=== PATIENT | male | born 1945 | race Caucasian/White ===

== ENCOUNTER 2023-08-17 09:03 | Inpatient (IN) | payer MEDICARE, OTHER, SELFPAY ==
[2023-08-17] VITALS (9 sets, daily range): BP systolic 101–145; BP diastolic 65–88; BMI 27.4; BMI 26.9; BMI 26.8
[2023-08-17 06:49] LABS: % Basophils 0.4 % (0-2); % Eosinophils 2.6 % (0-6); % Immature Granulocytes 0.6 % (0-0.5); % Lymphocytes 18.7 % (20.5-51.1); % Monocytes 5.3 % (1.7-9.3); % Neutrophils 72.4 % (42.2-75.2); Absolute Eosinophils 0.2 10^3/uL (0-0.7); Absolute Lymphocytes 1.3 10^3/uL (1.2-3.4); Absolute Monocytes 0.4 10^3/uL (0.1-0.6); Hematocrit 28.6 % (39.0-52.0); Hemoglobin 9.9 g/dL (13.0-18.0); Mean Corp Hgb Conc. 34.6 g/dL (33.0-37.0); Mean Corpuscular Hgb 31.1 pg (27.0-31.0); Mean Corpuscular Volume 89.9 fL (80.0-94.0); Mean Platelet Volume 10.1 fL (7.4-10.4); Nucleated Red Blood Cells % 0 % (-); Platelet Count 200 10^3/uL (130-400); Red Blood Cell Count 3.18 10^6/uL (4.70-6.10); Red Cell Dist. Width 12.1 % (11.5-14.5); White Blood Cell Count 6.9 10^3/uL (4.8-10.8)
[2023-08-17 07:00] LABS: INR 1.05; PT 13.5 Sec (11.4-14.6)
[2023-08-17 07:01] LABS: APTT 28.7 Sec (23.4-35.0)
--- NOTE | 2023-08-17 07:08 | ED.GENMED ---
History of Present Illness
General
Chief Complaint: Rectal Bleeding
Source: patient
Exam Limitations: none
Time Seen by Provider: 08/17/23 06:40
Travel History
Have you had any contact with someone who has COVID-19?: No
Do you have any symptoms of coronavirus? Fever > 100 degrees, chills, cough, shortness of breath, sore throat, loss of taste or smell, muscle aches, or headache?: No
History of Present Illness
History of Present Illness:
This is an 78-year-old male with history of prostate cancer presents with rectal bleeding. Patient states that on Friday night he had 2 episodes that seem to stop and did well yesterday through the day but this morning in the middle the night he
got up to urinate and had at least 4 episodes of bright red blood per rectum. Patient does have history of diverticular disease. No fevers. No abdominal pain. He states he otherwise feels normal. He states 'I could go out shovel snow right'.
Past History
Past History
ED Past Medical History: Cancer (Prostate cancer) and Other (Irritable bowel syndrome, diverticulitis, diverticulosis)
ED Past Surgical History: Orthopedic
Phy Exam
Physical Exam
Physical Exam:
CONSTITUTIONAL Patient alert and oriented to person, place and time. Well-appearing. Vital signs reviewed.
HEAD atraumatic, normocephalic.
EYES eyelids normal to inspection, Extraocular muscles intact, Conjunctiva normal, Sclera normal.
NECK normal range of motion, Trachea midline, no jugular venous distention.
RESPIRATORY CHEST No respiratory distress noted, Chest expansion equal
ABDOMEN abdomen nontender, Bowel sounds normal. No distention.
Rectal exam bright red blood on exam
BACK normal inspection, no obvious deformities
UPPER EXTREMITY range of motion normal, Motor strength normal, no cyanosis, no edema.
LOWER EXTREMITY range of motion normal, Motor strength normal, no cyanosis, no edema.
NEURO Speech normal, No focal motor deficits, Live coma scale 15, Memory normal, Cranial Nerves intact to screening exam.
SKIN skin warm, dry, and normal in color.
PSYCHIATRIC patient oriented to person place and time, Normal affect.
Course
Orders/Labs/Results
Orders:
Orders
08/17/23 06:36
Cardiac Monitoring- Treatment ONCE
IV Insert/Care/Rem.- Treatment PRN
O2 Therapy [RESP] Urgent
Titrate/Wean O2 to maintain O2 sat greater than (%): 93
Special Instructions: MAINTAIN CONTINOUS O2 SATS > OR = 93%
Pulse Ox/spot Check [RESP] Urgent
Quantity: 1
Special Instructions: ON ROOM AIR
08/17/23 06:40
Type+Screen Urgent
Complete Blood Count/With Diff Urgent
Comprehensive Metabolic Panel Urgent
PTT Urgent
Prothrombin Time Urgent
08/17/23 06:43
Electrocardiogram (*1) Urgent
Reason for Study: Other
Other Reason for Exam: rectal bleeding
EKG- Treatment ONCE
08/17/23 07:12
0.9% Sodium Chloride 500 ml [Nss] 500 ml IV BOLUS
08/17/23 07:31
CT Abd/pelvis Angio W/wo Iv Urgent
Comment:
Reason For Exam: rectal bleeding, h/o diverticulosis
08/17/23 12:00
H&H NOON
Abnormal Lab Results
08/17/23
06:40
RBC 3.18 L 10^6/uL
(4.70-6.10)
Hgb 9.9 L g/dL
(13.0-18.0)
Hct 28.6 L %
(39.0-52.0)
MCH 31.1 H pg
(27.0-31.0)
Immature Gran % 0.6 H %
(0-0.5)
Lymphocytes % 18.7 L %
(20.5-51.1)
Chloride 108 H mmol/L
(98-107)
BUN 40 H mg/dl
(9-20)
Glucose 175 H mg/dl
(70-99)
08/17/23 06:40
Vital Signs
Initial and Last Documented VS:
Initial Vital Signs
Temp Pulse Resp BP Pulse Ox
97.6 F 76 18 139/65 95
08/17/23 06:37 08/17/23 06:37 08/17/23 06:37 08/17/23 06:37 08/17/23 06:37
Last Documented Vital Signs
Temp Pulse Resp BP Pulse Ox
97.6 F 76 18 139/65 95
08/17/23 06:37 08/17/23 06:37 08/17/23 06:37 08/17/23 06:37 08/17/23 06:37
MDM/Problems Addressed
MDM/Problems Addressed:
Rectal bleeding
*Pulse Oximetry
Patient hypoxic: no
*Workers Compensation Manager Interpretation
Rate: normal
Interpretation: normal
Rhythm: sinus
*Critical Care Note
Total Time (30-74mins, 75-104mins- exclusive of procedures): 30 minutes
Data Reviewed
Source: patient and ambulance crew
Further Testing Considered But Not Given:
Consider blood transfusion but currently stable. Hemoglobin 9 but will need close repeat
Patient Management
Discussion with other providers: Hospitalist and Certified Coatings Inspector (Case discussed with GI)
Escalation/DeEscalation of care consider admission/obs:
78-year-old male presents with rectal bleeding. Check CTA. Admit. Hemoglobin noted. Blood pressure stable
ED Attending Note
-
Portions of this chart may have been created with voice recognition software.� Occasional wrong word or��sound alike� substitutions may have occurred due to the inherent limitations of voice recognition software.
Discharge Plan
Departure
Patient Disposition: Admit
Date of Disposition: 08/17/23
Time of Disposition: 07:35
Admit to: Telemetry
Presentation/result/management discussed w/ accepting MD/DO: Hospitalist
Discharge Problem:
Acute GI bleeding
Referrals:
TASHA DODSON MD [Family Provider] -
Interventions
Interventions:
*Risk Screen - Suicide Last Done: 08/17/23 06:37
*General Assessment Last Done: 08/17/23 06:47
*Neglect/Abuse Screening Last Done: 08/17/23 06:47
ED- Fall Risk Assessment Last Done: 08/17/23 06:55
*ED COVID-19 Vaccine History Last Done: 08/17/23 06:47
PS-Vwoqnn-Ddfqmvszec Assessment Last Done: 08/17/23 06:50
ED- Cardiac Assessment Last Done: 08/17/23 06:50
ED- Pulmonary Assessment Last Done: 08/17/23 06:50
[2023-08-17 07:09] LABS: ALT (SGPT) 18 U/L (0-50); AST (SGOT) 24 U/L (17-59); Albumin 3.7 g/dl (3.5-5.0); Alkaline Phosphatase 65 U/L (38-126); Blood Urea Nitrogen 40 mg/dl (9-20); Calcium 9.8 mg/dl (8.4-10.2); Carbon Dioxide 23 mmol/L (22-30); Chloride 108 mmol/L (98-107); Estimated Creatinine Clearance 49 ml/min; Glucose 175 mg/dl (70-99); Potassium 4.5 mmol/L (3.5-5.1); Sodium 137 mmol/L (135-145); Total Bilirubin 0.3 mg/dl (0.2-1.3); Total Protein 6.3 g/dl (6.3-8.2); eGFR > 60.00
--- NOTE | 2023-08-17 08:12 | HPS.HSE ---
Family Physician
-
Family Physician: TASHA DODSON MD
Chief Complaint
-
rectal bleeding
History of Present Illness
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 Prompted to visit ED when he developed 4 episodes overnight. Otherwise reports feeling well. Denies fevers
chills nausea vomiting diarrhea constipation abdomen pain unexpected weight loss lightheadedness. Denies history of smoking. Reports occasional social drinking, rare marijuana use. Reports a history of recurrent diverticulitis bleed several years
ago for which he was told next time he bled he would require sigmoidectomy. VSS, ED eval was notable for hemoglobin 9.9, last baseline in 2008 Hgb 13.4 per records here. CTA abdomen pelvis noted no active bleeding, severe diverticulosis throughout
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
Medical History
Past Medical History
Past Medical History: Reports Other (as above)
Past Surgical History: Reports Other (as above)
Social History
Tobacco: Non-smoker
Alcohol: Occasional
Drug: Marijuana (rare occasion)
Personal:
Living: With Family
Employment: Retired
Family History
Family History: Not pertinent (reviwed)
Allergies / Home Medications
Allergies reflects when Allergies were last updated in [employer].
Home Medications with original date entered in [employer]
Allergy/Medication List:
Allergies
Allergy/AdvReac Type Severity Reaction Status Date / Time
No Known Allergies Allergy Verified 08/17/23 08:42
Home Medications
calcium 1 tab PO DAILY 08/17/23
krill oil 1 tab PO DAILY 08/17/23
multivitamin 1 tab PO DAILY 08/17/23
omeprazole 20 mg tablet,delayed release 20 mg PO DAILY 08/17/23
oxybutynin chloride 15 mg tablet,extended release 24 hr 15 mg PO DAILY 08/17/23
tamsulosin 0.4 mg capsule 0.4 mg PO Q12H 08/17/23
Review of Systems
-
A 12 point ROS was completed and negative except as noted: Yes
Constitutional: Reports Other (as below)
Physical Exam
Vital Signs
Vital Signs
Temp Pulse Resp BP Pulse Ox
97.6 F 76 18 139/65 95
08/17/23 06:37 08/17/23 06:37 08/17/23 06:37 08/17/23 06:37 08/17/23 06:37
Physical Exam
General: Other (as below)
Laboratory Results
-
08/17/23 06:40
08/17/23 06:40
Laboratory Results
PT 13.5 Sec (11.4-14.6) 08/17/23 06:40
INR 1.05 08/17/23 06:40
APTT 28.7 Sec (23.4-35.0) 08/17/23 06:40
Total Bilirubin 0.3 mg/dl (0.2-1.3) 08/17/23 06:40
AST 24 U/L (17-59) 08/17/23 06:40
ALT 18 U/L (0-50) 08/17/23 06:40
Alkaline Phosphatase 65 U/L (38-126) 08/17/23 06:40
Impression/Plan
-
ROS
General: Denies fever chills night sweats unexpected weight loss
Neuro: Denies seizure shaking loss of consciousness dizziness vertigo
Psych: denies depression hallucinations confusion manic episodes
Endocrine: Denies polyuria polydipsia polyphagia heat/cold intolerance
HEENT: Denies blindness visual disturbances epistaxis
Pulmonary: denies coughing hemoptysis sneezing sob dyspnea on exertion
Cardiovascular: denies chest pain palpitations leg swelling
Hematology: denies signs symptoms of anemia easy bruising/bleeding
Gastrointestinal: Reports rectal bleeding, chronic intermittent diarrhea attributed to IBS
Genito-Urinary: denies retention incontinence dysuria
Musculoskeletal: denies joint pain weakness
Dermatology: denies rash laceration bruising
Physical Exam
General: No cyanosis, or jaundice. Possible pallor noted
HEENT: Throat clear. PERRLA Normocephalic atraumatic
NECK: Supple. No JVD Carotid Bruits
RESPIRATORY: Lungs clear to auscultation. No crackles wheezes stridor
CVS: S1, S2 normal. RRR. No murmur, rub or gallop.
ABDOMEN: Soft, non-tender. No distension. BS+/normal.
EXTREMITIES: No peripheral cyanosis or edema.
EARLY CHILDHOOD WORKER: AOx3. No focal deficits.
IMPRESSION:
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 Prompted to visit ED when he developed 4 episodes overnight. Otherwise reports feeling well. Denies fevers
chills nausea vomiting diarrhea constipation abdomen pain unexpected weight loss lightheadedness. Denies history of smoking. Reports occasional social drinking, rare marijuana use. Reports a history of recurrent diverticulitis bleed several years
ago for which he was told next time he bled he would require sigmoidectomy. VSS, ED eval was notable for hemoglobin 9.9, last baseline in 2008 Hgb 13.4 per records here. CTA abdomen pelvis noted no active bleeding, severe diverticulosis throughout
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
PLAN:
#Rectal bleeding
#Likely diverticular bleed
#Severe diverticulosis
Telemetry admit
CT abdomen pelvis appreciated as above
Monitor H&H, would transfuse for goal hemoglobin>7.5 given concern active bleeding
Type and screen appreciated O+
Patient consented for blood transfusion as necessary, however has reported preference to be transfused based on symptoms as opposed to hemoglobin number
Clear liquid diet for now
GI eval
CRS eval
DVT prophylaxis SCDs
GI prophylaxis Protonix
Meds reconciled and resume as appropriate
Full code
I spent a total of 76 minutes with the patient or on the floor. More than 50% of this time involved counseling and coordination of care.
--- NOTE | 2023-08-17 08:30 | CON.GI ---
Consultation
-
Date/Time Consultation Requested: 08/17/2023
Date/Time Consultation Performed: 08/17/2023
Requesting Provider: Dr. Skaggs in emergency room
Performing Provider: Dr. Lindsey
Reason for Consultation: Rectal bleeding
Medical History
Chief Complaint / HPI
Chief Complaint: Rectal bleeding
History of Present Illness:
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
12 down to 9.9. He is hemodynamically stable and has had no further bleeding since home. He is followed by Dr. Saha in urology. His cancer care is at [facility]. Friday night he had 2 episodes then last night felt the urge to urinate
and had 4 episodes of bright red blood. Patient states he did see some burgundy and some clot. No abdominal pain otherwise feels well. his hemoglobin here is 9.9 platelet count 200 with a BUN of 40 and a creatinine of 1.2. I reviewed outpatient
[facility] labs and provation and there are no endoscopic reports here or prior hemoglobin to review. He is not on any blood thinners. He just underwent a CT abdomen pelvis angiogram showing severe diverticulosis throughout the left colon with no active
GI hemorrhage, radiation seeds are present in the prostate gland. The rectum appears normal on imaging.
At baseline he denies any dysphagia, has chronic well-controlled heartburn on PPI, no chronic nausea or vomiting or abdominal pain. He states he is always had a nervous stomach and has fecal urgency at times requiring Imodium. He did take Imodium
the last 2 nights. States his last colonoscopy was about 5 years ago and through the years he said small polyps and diverticular disease but was told no further colonoscopies needed.
He has never required a transfusion and has had no prior rectal bleeding.
Past Medical History
Past Medical History: Cancer (Prostate cancer status post radiation, hormone therapy), GERD and Other
Past Surgical History: Other (Carpal tunnel release, cervical fusion, umbilical hernia repair, knee replacement, tonsillectomy)
Social History
Tobacco: Non-Smoker
Alcohol: None
Drug: None
Personal:
Employment: Retired
Family History
Family History: Other (Multiple myeloma)
Allergies / Home Medications
Allergy/AdvReac Type Severity Reaction Status Date / Time
No Known Allergies Allergy Unverified 09/02/14 10:42
Review of Systems
-
History Source: Patient
All other systems: A 12 pt ROS was Negative except as stated above in HPI
Vital Signs
Temp Pulse Resp BP Pulse Ox
97.6 F 76 18 139/65 95
08/17/23 06:37 08/17/23 06:37 08/17/23 06:37 08/17/23 06:37 08/17/23 06:37
Physical Exam
Exam
HEENT: Normocephalic and Anicteric
Respiratory: Clear
Cardiac: S1/S2
GI: Soft, Non Tender and Non Distended
Neuro: AO x 3
Psych: Calm
Results
WBC 6.9 10^3/uL (4.8-10.8) 08/17/23 06:40
Hgb 9.9 g/dL (13.0-18.0) L 08/17/23 06:40
Hct 28.6 % (39.0-52.0) L 08/17/23 06:40
MCV 89.9 fL (80.0-94.0) 08/17/23 06:40
Plt Count 200 10^3/uL (130-400) 08/17/23 06:40
Absolute Neuts (auto) 5.0 10^3/uL (1.4-6.5) 08/17/23 06:40
PT 13.5 Sec (11.4-14.6) 08/17/23 06:40
INR 1.05 08/17/23 06:40
APTT 28.7 Sec (23.4-35.0) 08/17/23 06:40
Sodium 137 mmol/L (135-145) 08/17/23 06:40
Potassium 4.5 mmol/L (3.5-5.1) 08/17/23 06:40
Chloride 108 mmol/L (98-107) H 08/17/23 06:40
Carbon Dioxide 23 mmol/L (22-30) 08/17/23 06:40
BUN 40 mg/dl (9-20) H 08/17/23 06:40
Creatinine 1.2 mg/dL (0.7-1.3) 08/17/23 06:40
Calcium 9.8 mg/dl (8.4-10.2) 08/17/23 06:40
Total Bilirubin 0.3 mg/dl (0.2-1.3) 08/17/23 06:40
AST 24 U/L (17-59) 08/17/23 06:40
ALT 18 U/L (0-50) 08/17/23 06:40
Alkaline Phosphatase 65 U/L (38-126) 08/17/23 06:40
Diagnostic Image Results:
08/17/2023, CT angio showing a normal-appearing rectum, severe left-sided diverticular disease with diverticular disease as well in the transverse. Moderate amount of fecal material through the right colon. No active extravasation. No active
bleeding. Radiation seeds present the prostate gland
Prior GI Procedures:
EGD: Years ago and subjectively unremarkable
Colonoscopy: Subjectively 5 years ago with diverticular disease and small benign polyps
Assessment / Plan
-
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
from subjectively normal hemoglobin down to 9.9 is otherwise hemodynamically stable
# Rectal bleeding -etiology could be radiation proctitis versus diverticular bleed versus other
-- Okay for clear liquid diet
-- Check hemoglobin every 8 hours
-- Will prep for colonoscopy for tomorrow
-- Twice daily PPI
-- 2 large-bore IVs
Total Time Spent with Patient (in minutes): 35
Data Reviewed
-
CT Scan: Report Reviewed by me
Old Records: Reviewed (I reviewed multiple scan in outpatient notes, none of which have a CBC to review)
Time spent with patient (in minutes): 45
-
-
Thank you for consultation and allowing me to participate in the patient's care. Please call the companion GI physician during the after hours with any questions or concerns.
[2023-08-17] MEDS: NSS 500 IV (08:34)
[2023-08-17] MEDS: FLOMAX PO (10:49)
--- NOTE | 2023-08-17 11:59 | CON.CRS ---
Consultation
-
Date/Time Consultation Requested: 08/17/23924
Requesting Provider: Vivien
Performing Provider: Marine Finch
Medical History
-
Chief Complaint: BRBPR
History of Present Illness:
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
and treatment with radiation/brachytherapy who presents with rectal bleeding. He had an initial episode 2 nights ago. He awakened to void, which he notes he does frequently during the night, and had a large bloody BM with bright red blood as well as
clots. The rest of the day proceeded without further bleeding until last night when he awakened from sleep with a similar episode. This happened several more times and he began to feel lightheaded prompting him to present for evaluation. He has a
history of IBS and did try Imodium which he takes intermittently for diarrhea symptoms. Last colonoscopy was 5 years ago. He has not had any further bloody stools since around 4 am this morning. He denies pain with these episodes. He denies nausea
or vomiting. He denies any prior history of rectal bleeding.
Past Medical History
Past Medical History: Cancer (prostate), Diverticulitis, GERD and Other (ibs)
Past Surgical History: Hernia Repair (umbilical hernia repair 2009, right inguinal hernia repair 2014), Orthopedic (BL TKR, carpal tunnel release, right rotator cuff repair), Tonsilectomy and Other (septal repair)
Social History
Tobacco: Former Smoker
Alcohol: Occasional
Family History
Family History: Reviewed & Not Pertinent
Allergies / Home Medications
Allergy/AdvReac Type Severity Reaction Status Date / Time
No Known Allergies Allergy Verified 08/17/23 08:42
Medication Instructions Recorded Confirmed Type
calcium 1 tab PO DAILY 08/17/23 08/17/23 History
krill oil 1 tab PO DAILY 08/17/23 08/17/23 History
multivitamin 1 tab PO DAILY 08/17/23 08/17/23 History
omeprazole 20 mg tablet,delayed 20 mg PO DAILY 08/17/23 08/17/23 History
release
oxybutynin chloride 15 mg 15 mg PO DAILY 08/17/23 08/17/23 History
tablet,extended release 24 hr
tamsulosin 0.4 mg capsule 0.4 mg PO Q12H 08/17/23 08/17/23 History
Review of Systems
-
History Source: Patient
All other systems: Negative unless noted
A 10 point review of systems was completed, and was negative except as per HPI.
Physical Exam
Vital Signs
Temp 98.2 F 08/17/23 10:56
Pulse 91 08/17/23 10:56
Resp Rate 18 08/17/23 10:56
Blood pressure 131/88 08/17/23 10:56
SaO2 98 08/17/23 10:56
08/16/23 08/17/23 08/18/23
06:59 06:59 06:59
Actual Weight 84.1 kg 82.355 kg
Body Mass Index (BMI) 26.8
Lab Results / Allergies
08/17/23 06:40
WBC 6.9 10^3/uL (4.8-10.8) 08/17/23 06:40
Hgb 9.9 g/dL (13.0-18.0) L 08/17/23 06:40
Hct 28.6 % (39.0-52.0) L 08/17/23 06:40
Plt Count 200 10^3/uL (130-400) 08/17/23 06:40
Abs Immat Gran (auto) 0.0 10^3/uL (0-0.05) 08/17/23 06:40
Neutrophils % 72.4 % (42.2-75.2) 08/17/23 06:40
Allergy/AdvReac Type Severity Reaction Status Date / Time
No Known Allergies Allergy Verified 08/17/23 08:42
Physical Exam
General: Well Developed and Well Nourished
HEENT: Moist Mucous Membranes
Respiratory: Non Labored Respirations
GI: Soft, Non Tender and Non Distended
Skin: Other (Pale)
Neuro: Awake, Alert and AO x 3
Psych: Calm
Data Reviewed
-
CT Scan: Image Personally Visualized and interpreted, Report Reviewed by me, Discussed with Physician and Discussed with Patient
Old Records: Reviewed
Assessment / Plan
-
Assessment:
This is an 78 yo male h/o diverticulitis x3, umbilical hernia repair 2009, right inguinal hernia repair 2014, and prostate ca tx with XRT and ADT presenting with new, painless rectal bleeding with clots. Hemoglobin 9.9, pale, stable vital signs.
Last bloody BM was around 4am today. Gastroenterology has evaluated the patient with colonoscopy planned tomorrow. Unclear etiology of bleeding, suspected diverticular bleed vs radiation proctitis. CTA without active hemorrhage.
Plan:
Appreciate GI, agree with colonoscopy and trending of h/h as planned
Surgical recommendations pending colonoscopy findings
[2023-08-17] MEDS: PROTONIX 40 MG PO ×2 (12:45→20:33)
[2023-08-17 12:53] LABS: Hematocrit 26.6 % (39.0-52.0); Hemoglobin 9.2 g/dL (13.0-18.0)
[2023-08-17] MEDS: NULYTELY SOLUTION 4 LITERS PO (14:52)
[2023-08-17 20:20] LABS: Hemoglobin 8.6 g/dL (13.0-18.0)
[2023-08-17] MEDS: DITROPAN 7.5 MG PO (20:32)
[2023-08-17] MEDS: FLOMAX 0.400000000000000022 MG PO (21:07)
[2023-08-18] VITALS (14 sets, daily range): BP systolic 19–137; BP diastolic 48–71; BMI 27.1
[2023-08-18 02:52] LABS: Hematocrit 23.2 % (39.0-52.0); Hemoglobin 8.2 g/dL (13.0-18.0); Mean Corp Hgb Conc. 35.3 g/dL (33.0-37.0); Mean Corpuscular Hgb 31.3 pg (27.0-31.0); Mean Corpuscular Volume 88.5 fL (80.0-94.0); Mean Platelet Volume 10.2 fL (7.4-10.4); Platelet Count 160 10^3/uL (130-400); Red Blood Cell Count 2.62 10^6/uL (4.70-6.10); Red Cell Dist. Width 12.5 % (11.5-14.5); White Blood Cell Count 5.9 10^3/uL (4.8-10.8)
[2023-08-18 03:11] LABS: Blood Urea Nitrogen 23 mg/dl (9-20); Calcium 9.3 mg/dl (8.4-10.2); Carbon Dioxide 26 mmol/L (22-30); Chloride 105 mmol/L (98-107); Estimated Creatinine Clearance 59 ml/min; Glucose 110 mg/dl (70-99); Sodium 137 mmol/L (135-145); eGFR > 60.00
[2023-08-18 08:08] LABS: Hematocrit 23.3 % (39.0-52.0); Hemoglobin 8.2 g/dL (13.0-18.0)
[2023-08-18] MEDS: FEOSOL 325 MG PO (08:47)
[2023-08-18] MEDS: DITROPAN 7.5 MG PO ×2 (08:47→21:11)
[2023-08-18] MEDS: PROTONIX 40 MG PO ×2 (08:47→21:14)
[2023-08-18] MEDS: THERAGRAN 1 TABLET PO (08:47)
--- NOTE | 2023-08-18 10:59 | W.PN.CRS1 ---
Addendum entered and electronically signed by Joey Rose MD 08/18/23 17:24:
I saw and examined the patient.
The PA's note was reviewed and I agree with the note.
Comment:
Seen in a.m. with PA.
No complaints. Denied bleeding.
Vitals reasonable. Hemoglobin stable at 8.2.
Abdomen soft and nontender.
Colonoscopy was planned for today by GI. Of note, later in the day colonoscopy was performed of which the results are available. Apparently no active bleeding and a lot of diverticular disease as well as some minor AVMs in the rectum. The report
relates that the diverticular disease was likely the source of bleeding and that the bleeding has stopped.
Will continue to follow. If no further bleeding will likely sign off tomorrow.
Original Note:
Today's Communication / Plan
-
colonoscopy by GI today
Assessment/Plan
-
Assessment:
This is an 78 yo male h/o diverticulitis x3, umbilical hernia repair 2009, right inguinal hernia repair 2014, and prostate ca tx with XRT and ADT presenting with new, painless rectal bleeding with clots. Hemoglobin 8.2, pale, stable vital signs.
Last bloody BM was yesterday. Gastroenterology has evaluated the patient with colonoscopy planned tomorrow. Unclear etiology of bleeding, suspected diverticular bleed vs radiation proctitis. CTA without active hemorrhage.
Plan:
1. Continue to trend hemoglobin.
2. NPO for planned colonoscopy by GI today.
3. Recommendations to follow post colonoscopy.
Subjective Data
Subjective Data
Date of Service: August 18, 2023
Patient states he has no pain. He denies rectal bleeding today. He denies nausea or vomiting. He states he has no prior history of rectal bleeding. He has remote episodes of diverticulitis in the past.
Objective Data
-
Vital Signs
Temp Pulse Resp BP Pulse Ox
98.1 F 72 19 109/71 98
08/18/23 10:15 08/18/23 10:15 08/18/23 10:15 08/18/23 10:16 08/18/23 10:17
Intake & Output
08/17/23 08/18/23 08/19/23
06:59 06:59 06:59
Intake Total 480 / 480
Output Total 605 / 605
Balance -125 / -125
Intake:
Oral fluids 480 / 480
Output:
Liquid stool amount 5 / 5
Rectum 5 / 5
Urine, Voided 600 / 600
Other:
Number of approximated MODERATE 5
amounts of urine
Lab Results
08/18/23 02:33
Physical Exam
-
General: No Acute Distress and AOx3
Abdomen: Soft, Non Distended and Non Tender
Skin: Warm and Dry
[2023-08-18] MEDS: FLOMAX 0.400000000000000022 MG PO ×2 (11:09→21:17)
--- NOTE | 2023-08-18 11:18 | PTCARENOTE ---
pt back from GI lab s/p Colonoscopy. pt is AAO*3, Vss, room air. denies any pain or discomfort. received report from PACU. pt back on regular diet. will continue plan of care.
--- NOTE | 2023-08-18 12:28 | W.PN.HOSP.TC ---
Today's Communication/Plan
-
trend H&H
likely d/c tomorrow
Assessment / Plan
Assessment / Plan
pt is an 78 year old male
Rectal bleeding--Likely diverticular bleed with Hx Severe diverticulosis--apprec GI/CRS--colonoscopy with presumed diverticular bleed--no active bleeding noted--trending H&H--Patient consented for blood transfusion as necessary, however has reported
preference to be transfused based on symptoms as opposed to hemoglobin number
DVT prophylaxis SCDs
GI prophylaxis Protonix
Full code
Anticipated Discharge: Within 24 hours
Subjective/Interval History
-
Date of Service: August 18, 2023
pt back from colonoscopy--no pain--no further bleeding
Objective Data
-
Labs:
Laboratory Results
08/18/23 08/18/23 08/18/23
02:33 02:33 02:33
WBC 5.9
Hgb 8.2 L Cancelled
Hct 23.2 L Cancelled
Plt Count 160
Sodium 137
Potassium 4.0
Chloride 105
Carbon Dioxide 26
BUN 23 H
Creatinine 1.0
Glucose 110 H
Calcium 9.3
08/18/23
06:35
WBC
Hgb 8.2 L
Hct 23.3 L
Plt Count
Sodium
Potassium
Chloride
Carbon Dioxide
BUN
Creatinine
Glucose
Calcium
Vital Signs:
max temp for 24 hours
08/18/23
07:30
Temp 98.4 F
Vital Signs
Temp Pulse Resp BP Pulse Ox
98.5 F 76 18 112/60 97
08/18/23 12:00 08/18/23 12:00 08/18/23 12:00 08/18/23 12:00 08/18/23 12:00
I&O
08/17/23 08/18/23 08/19/23
06:59 06:59 06:59
Intake Total 480 / 480
Output Total 605 / 605
Balance -125 / -125
Review of Systems
-
All other systems: Reviewed and negative
Physical Exam
-
General: Well Developed, Well Nourished and No Apparent Distress
HEENT: Normocephalic and Atraumatic
Respiratory: Clear to Auscultation; Negative Wheezes or Rhonchi
Cardiac: Regular Rhythm and S1/S2; Negative Murmur
GI: Soft, Nontender, Nondistended and Normal Bowel Sounds
Musculoskeletal: No Clubbing, No Cyanosis and No Edema
Neuro: Awake and Alert
--- NOTE | 2023-08-18 13:15 | CM ---
Patient seen at bedside with physician. Patient states that he lives in [place] with . Patient states that he will have transport him home and that he has no needs. Patient PCP is Dr. Wood and he uses the [facility].
Patient stated that he is independent of ADL's and IADL's and has no anticipated needs for discharge. CM will continue to follow for discharge planning needs.
Plan; home with no needs.
[2023-08-18] MEDS: FERRLECIT 110 MG IV (13:29)
[2023-08-18 14:20] LABS: Hematocrit 23.6 % (39.0-52.0); Hemoglobin 8.3 g/dL (13.0-18.0)
[2023-08-19 03:34] VITALS: BP 114/56
[2023-08-19 07:30] VITALS: BP 127/58
[2023-08-19 07:34] LABS: Hematocrit 24.6 % (39.0-52.0); Hemoglobin 8.5 g/dL (13.0-18.0); Mean Corp Hgb Conc. 34.6 g/dL (33.0-37.0); Mean Corpuscular Hgb 31.1 pg (27.0-31.0); Mean Corpuscular Volume 90.1 fL (80.0-94.0); Mean Platelet Volume 10.1 fL (7.4-10.4); Platelet Count 161 10^3/uL (130-400); Red Blood Cell Count 2.73 10^6/uL (4.70-6.10); Red Cell Dist. Width 12.4 % (11.5-14.5); White Blood Cell Count 6.2 10^3/uL (4.8-10.8)
[2023-08-19 08:04] LABS: Blood Urea Nitrogen 21 mg/dl (9-20); Calcium 9.2 mg/dl (8.4-10.2); Carbon Dioxide 27 mmol/L (22-30); Chloride 104 mmol/L (98-107); Estimated Creatinine Clearance 49 ml/min; Glucose 114 mg/dl (70-99); Potassium 4.4 mmol/L (3.5-5.1); Sodium 138 mmol/L (135-145); eGFR > 60.00
--- NOTE | 2023-08-19 08:24 | W.PN.GI.CBS2 ---
Today's Communication / Plan
-
Hemoglobin remained stable and no further bleeding and tolerating diet
okay to DC home today to follow-up as outpatient
Assessment / Plan
-
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
from subjectively normal hemoglobin down to 9.9 is otherwise hemodynamically stable
# Rectal bleeding -etiology most likely diverticular bleed and mild radiation proctitis status post APC yesterday.
-- No further bleeding and hemoglobin remains stable after his initial drop
-Tolerating diet
-Okay to DC home today and follow-up with GI as outpatient in 2 to 3 months he will call back with any further signs of bleeding.
-Continue Metamucil he has been on it for the past couple of years for IBS - M and diverticulosis
Subjective
Subjective
Date of Service: August 19, 2023
No further bleeding, status post colonoscopy yesterday with polypectomy and APC for mild radiation proctitis, he is tolerating diet, no abdominal pain, no nausea or vomiting. hemoglobin remained stable
Objective
Data Reviewed
Laboratory Data:
Laboratory Results
08/19/23 06:18
08/19/23 06:18
Laboratory Results
PT 13.5 Sec (11.4-14.6) 08/17/23 06:40
INR 1.05 08/17/23 06:40
APTT 28.7 Sec (23.4-35.0) 08/17/23 06:40
Total Bilirubin 0.3 mg/dl (0.2-1.3) 08/17/23 06:40
AST 24 U/L (17-59) 08/17/23 06:40
ALT 18 U/L (0-50) 08/17/23 06:40
Alkaline Phosphatase 65 U/L (38-126) 08/17/23 06:40
Vital Signs and I&O:
Vital Signs
Temp Pulse Resp BP Pulse Ox
98.1 F 67 18 114/56 97
08/19/23 03:34 08/19/23 03:34 08/19/23 03:34 08/19/23 03:34 08/19/23 03:34
I&O
08/18/23 08/19/23 08/20/23
06:59 06:59 06:59
Intake Total 480 / 480 900 / 900
Output Total 605 / 605
Balance -125 / -125 900 / 900
Physical Exam
Physical Exam
Cardiology: Normal Sinus Rhythm and Murmur (systolic murmur)
Pulmonary: Clear
GI: Soft, Non Distended, Non Tender and Normal Bowel Sounds
--- NOTE | 2023-08-19 08:44 | PN.CDI ---
CDI
- -
CDI:
Physician Documentation Request
Admit Date: 08/17/23 09:03
Dear Doctor Lester,
Patient admitted for diverticular bleed.
08/18 GI Consult: 'comes in with mildly symptomatic rectal bleeding with a drop in hemoglobin from baseline around 12 down to 9.9...Friday night he had 2 episodes then last night felt the urge to urinate and had 4 episodes of bright red blood.
Patient states he did see some burgundy and some clot.'
08/18 Hospitalist PN: 'trending H&H--Patient consented for blood transfusion as necessary'
Laboratory Tests
08/17/23 08/18/23 08/19/23
06:40 02:33 06:18
Hgb 9.9 L 8.2 L 8.5 L
Hct 28.6 L 23.2 L 24.6 L
Based on the above, could you clarify in the progress notes, the appropriate diagnosis, if significant, that supports the above abnormalities and additional evaluation, monitoring and/or treatment rendered
Acute blood loss anemia
Anemia of chronic disease - indicate if neoplastic disease, CKD or other
Chronic iron deficiency anemia due to blood loss
Other
Use of terms such as suspected, likely, concern for, or probable (associated with a specific diagnosis that is being evaluated, monitored, or treated as if it exists) are acceptable and can be coded in the inpatient setting, when documented at the
time of discharge.
Thank you,
Nithya Malave RN, BSN
CDI Specialist
Available via [place] text
Please use your independent medical judgment in providing your response.
[2023-08-19] MEDS: THERAGRAN 1 TABLET PO (08:54)
[2023-08-19] MEDS: PROTONIX 40 MG PO (08:54)
[2023-08-19] MEDS: FEOSOL 325 MG PO (08:54)
[2023-08-19] MEDS: FLOMAX 0.400000000000000022 MG PO (08:54)
[2023-08-19] MEDS: DITROPAN 7.5 MG PO (09:07)
--- NOTE | 2023-08-19 09:10 | W.PN.HOSP.TC ---
Today's Communication/Plan
-
d/c
Assessment / Plan
Assessment / Plan
pt is an 78 year old male
acute blood loss anemia due to Rectal bleeding--Likely diverticular bleed with Hx Severe diverticulosis--apprec GI/CRS--colonoscopy with presumed diverticular bleed--no active bleeding noted--trending H&H--Patient consented for blood transfusion as
necessary, however has reported preference to be transfused based on symptoms as opposed to hemoglobin number
DVT prophylaxis SCDs
GI prophylaxis Protonix
Full code
Anticipated Discharge: Today
Subjective/Interval History
-
Date of Service: August 19, 2023
pt ready for d/c
Objective Data
-
Labs:
Laboratory Results
08/19/23
06:18
WBC 6.2
Hgb 8.5 L
Hct 24.6 L
Plt Count 161
Sodium 138
Potassium 4.4
Chloride 104
Carbon Dioxide 27
BUN 21 H
Creatinine 1.2
Glucose 114 H
Calcium 9.2
Vital Signs:
max temp for 24 hours
08/19/23
03:34
Temp 98.1 F
Vital Signs
Temp Pulse Resp BP Pulse Ox
98.3 F 76 18 127/58 96
08/19/23 07:30 08/19/23 07:30 08/19/23 07:30 08/19/23 07:30 08/19/23 07:30
I&O
08/18/23 08/19/23 08/20/23
06:59 06:59 06:59
Intake Total 480 / 480 900 / 900
Output Total 605 / 605
Balance -125 / -125 900 / 900
Review of Systems
-
All other systems: Reviewed and negative
Physical Exam
-
General: Well Developed, Well Nourished and No Apparent Distress
HEENT: Normocephalic and Atraumatic
Respiratory: Clear to Auscultation; Negative Wheezes or Rhonchi
Cardiac: Regular Rhythm and S1/S2; Negative Murmur
GI: Soft, Nontender, Nondistended and Normal Bowel Sounds
Musculoskeletal: No Clubbing, No Cyanosis and No Edema
--- NOTE | 2023-08-19 09:11 | CM ---
Patient seen at bedside with physician. Patient stated that his is coming to pick him up and IMM completed and signed form placed on chart. CM will continue to follow for discharge planning needs.
Plan; home with no needs.
--- NOTE | 2023-08-19 10:09 | W.PN.CRS1 ---
Today's Communication / Plan
-
ok for d/c
no surgical intervention
Assessment/Plan
-
Assessment:
This is an 78 yo male h/o diverticulitis x3, umbilical hernia repair 2009, right inguinal hernia repair 2014, and prostate ca tx with XRT and ADT presenting with new, painless rectal bleeding with clots. Hemoglobin 8.2, pale, stable vital signs.
Last bloody BM was yesterday. Gastroenterology has evaluated the patient with colonoscopy planned tomorrow. Unclear etiology of bleeding, suspected diverticular bleed vs radiation proctitis. CTA without active hemorrhage.
Plan:
NO surgical intervention needed from our standpoint. We advised patient to call our office if further bleeding occurs. Okay for discharge from our standpoint. Please call us if any further issues arise.
Subjective Data
Subjective Data
Date of Service: August 19, 2023
Patient states he has had no further bleeding. He had a bowel movement that was loose since his colonoscopy. He has no complaints at this time.
Objective Data
-
Vital Signs
Temp Pulse Resp BP Pulse Ox
98.3 F 76 18 127/58 96
08/19/23 07:30 08/19/23 07:30 08/19/23 07:30 08/19/23 07:30 08/19/23 07:30
Intake & Output
08/18/23 08/19/23 08/20/23
06:59 06:59 06:59
Intake Total 480 / 480 900 / 900
Output Total 605 / 605
Balance -125 / -125 900 / 900
Intake:
Oral fluids 480 / 480 900 / 900
Output:
Liquid stool amount 5 / 5
Rectum 5 / 5
Urine, Voided 600 / 600
Other:
Number of approximated MODERATE 5 3
amounts of urine
How many times incontinent 3
MODERATE amount urine
Lab Results
08/19/23 06:18
08/19/23 06:18
Physical Exam
-
General: No Acute Distress and AOx3
Abdomen: Non Distended and Non Tender
Skin: Warm and Dry
--- NOTE | 2023-08-20 07:42 | W.DCSUMMARY ---
Discharge Summary
Discharge Data
Date of Admission: 08/17/23
Date of Discharge: 08/19/23
-
Pending Results: Yes
Additional Pending Results:
Biopsies from polyp removal during colonoscopy
Hospital Course
Primary care physician : Jordy Dodson
Principal Discharge diagnosis : Acute blood loss anemia due to rectal bleeding
Chronic Discharge diagnosis : Prostate cancer
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 4 episodes happened the night prior to admission which prompted an
ED visit. Patient denied fevers, chills, nausea, vomiting, diarrhea, or constipation. He also denied abdominal pain or unexpected weight loss. Hemoglobin was noted to be 9.9 in the emergency department. CAT scan done in the emergency department
showed no active bleeding. Patient was admitted.
Problem #1: Acute blood loss anemia due to rectal bleeding. Patient was admitted and seen in consultation by both gastroenterology and colorectal surgery. Patient was prepped for colonoscopy which was performed on 08/18/2023. No active bleeding
was noted however there was seem to be some residual areas of recent bleeding likely consistent with diverticular bleed. Polyps were found and were removed and biopsied. Patient was consented for blood but did not require any blood transfusions
during his hospitalization. Patient's hemoglobin was 9.9 on admission which dropped to 8.5 on discharge. He had no further bleeding while in the hospital.
Problem #2: All other medical issues. These include prostate cancer. This was stable during his hospitalization.
Patient is stable for discharge home at this time. There are any questions regarding this dictation or his hospital stay, please not hesitate to call. Our office number is [phone].
Important imaging findings :
CT SCAN ABDOMEN/PELVIS ANGIOGRAPHY IMPRESSION:
1. � SEVERE DIVERTICULOSIS throughout the DESCENDING and SIGMOID COLON.
2. � No CTA evidence for acute active gastrointestinal hemorrhage.
3. � Moderate chronic bilateral renal disease with a moderate number of bilateral renal cysts and nonobstructing intrarenal calculi.
4. � Small hiatal hernia.
5. � Radiation seeds in the prostate gland.
6. 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
Procedure findings :
COLONOSCOPY: Impression:�Overall, source for his painless hematochezia with
�� � � � � � � � � � � significant hgb drop was likely diverticular in nature
�� � � � � � � � � � � that has since stopped.
�� � � � � � � � � � � - A few non-bleeding colonic angioectasias from prior
�� � � � � � � � � � � radiation present, but not actively bleeding. Treated
�� � � � � � � � � � � with argon plasma coagulation (APC).
�� � � � � � � � � � � - Two <1cm polyps in the proximal transverse colon,
�� � � � � � � � � � � removed with a cold snare. Resected and retrieved.
�� � � � � � � � � � � - One 7 mm polyp in the sigmoid colon, removed with a
�� � � � � � � � � � � cold snare. Resected and retrieved.
�� � � � � � � � � � � ( I removed them since he is a healthy 78yoM)
�� � � � � � � � � � � - Diverticulosis in the transverse colon and in the
�� � � � � � � � � � � left colon.
�� � � � � � � � � � � - In the sigmoid colon there were multiple small balls
�� � � � � � � � � � � of stool with maroon color - signifying this was
�� � � � � � � � � � � likely a diverticular bleed that resolved.
�� � � � � � � � � � � - The examined portion of the ileum was normal.
Discharge Plan
-
Patient Disposition: Home (Routine Discharge)
Discharge Diagnosis/Procedures: acute blood loss anemia due to Rectal bleeding likely diverticular in nature with a history of severe diverticulosis
Condition: Good
Diet: Low Residue
Additional Diets: Advance to regular as tolerated
Activity: As tolerated
Driving Restrictions: As prior to admission
Bathing Restrictions: None
Activity Restrictions/Additional Instructions:
GI office to call you in 1 to 2 weeks with biopsy results of the polyps removed at the time of colonoscopy
Referrals:
JORDY DODSON MD [Family Provider] - in less than 1 week
Prescriptions:
New
ferrous sulfate [FeroSul] 325 mg (65 mg iron) Tablet
325 mg PO DAILY Qty: 0 0RF
multivitamin with folic acid [Tab-A-Najma] 400 mcg Tablet
1 tab PO DAILY Qty: 0 0RF
Continued
oxybutynin chloride 15 mg Tablet Extended Release 24hr
15 mg PO DAILY
tamsulosin 0.4 mg Capsule
0.4 mg PO Q12H
omeprazole 20 mg Tablet,Delayed Release (Dr/Ec)
20 mg PO DAILY
calcium
1 tab PO DAILY
krill oil
1 tab PO DAILY
multivitamin
1 tab PO DAILY
Discharge Orders:
Discharge Patient (As Directed); Ordered 08/19/23
Ordered By: Ashley Batista
Discharge Date and Time
Discharge Date/Time: 08/19/23 12:05
== END 2023-08-19 12:05 | disposition home or self-care (01) | DRG 378 ==
LOC: 4 EAST ACU 09:03
PROVIDERS: Nurse Practitioner Family; ADMITTING PHYSICIAN Internal Medicine; ATTENDING PHYSICIAN Internal Medicine; CONSULT PHYSICIAN Internal Medicine; CONSULT PHYSICIAN Surgery; EMERGENCY PHYSICIAN Emergency Medicine; FAMILY PHYSICIAN Internal Medicine
PROC: 0DBN8ZX Excision of Sigmoid Colon, Via Natural or Artificial Opening Endoscopic, Diagnostic (ICD-10-PCS; 2023-08-18)
PROC: 0DBK8ZX Excision of Ascending Colon, Via Natural or Artificial Opening Endoscopic, Diagnostic (ICD-10-PCS; 2023-08-18)
DX: K57.33 Diverticulitis of large intestine without perforation or abscess with bleeding (principal); D62 Acute posthemorrhagic anemia; K55.20 Angiodysplasia of colon without hemorrhage; D12.2 Benign neoplasm of ascending colon; D17.9 Benign lipomatous neoplasm, unspecified; Z92.3 Personal history of irradiation; Z85.46 Personal history of malignant neoplasm of prostate
CPT/HCPCS: 88305; 74174; 80048; 80053; 85014; 85018; 85025; 85027; 85610; 85730; 86850; 86900; 86901; 93005; 99291; J2916; Q9967

== ENCOUNTER → 2025-05-23 08:15 | Outpatient (REF) | payer MEDICARE, OTHER, SELFPAY | LOC: RAD 08:15 | PROVIDERS: ATTENDING PHYSICIAN Internal Medicine; FAMILY PHYSICIAN Internal Medicine; REFERRING PHYSICIAN Specialist | DX: M81.8 Other osteoporosis without current pathological fracture (principal) | CPT/HCPCS: 77080 ==